=== PATIENT | male | born 1995 | race Caucasian/White ===

== ENCOUNTER 2023-04-06 04:40 | Emergency (ER) | payer BC ==
[~2023-04-06] VITALS: Ht 170.2 cm; Wt 72.6 kg
[2023-04-06 04:54] VITALS: BP 140/96; PULSE 103; RESP 20; TEMP 98; O2SAT 98
[2023-04-06 05:28] VITALS: BP 140/96; PULSE 103; RESP 20; TEMP 98; O2SAT 98
== END 2023-04-06 04:55 ==
LOC: MED 04:40
DX: S01.511A Laceration without foreign body of lip, initial encounter (principal); Z02.89 Encounter for other administrative examinations; V89.2XXA Person injured in unspecified motor-vehicle accident, traffic, initial encounter; Y93.89 Activity, other specified; Y92.410 Unspecified street and highway as the place of occurrence of the external cause; Y99.8 Other external cause status
CPT/HCPCS: 99283